=== PATIENT | female | born 1980 | race Two or more races ===

== ENCOUNTER 2024-06-07 01:25 | Emergency (ER) | payer OTHER ==
[~2024-06-07] VITALS: Ht 165.1 cm; Wt 86.0 kg
[2024-06-07] MEDS: IOHEXOL 300 MG/ML 100ML BOTTLE IJ ONE (02:03)
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
[2024-06-07] MEDS: ACETAMINOPHEN 325 MG TAB PO ONE (02:45)
[2024-06-07 02:47] LABS: Basophils # (auto) 0.1 10 ^3/uL (0-0.2); Basophils % (auto) 0.5 % (0.0-2.0); Eosinophils # (auto) 0.2 10 ^3/uL (0-0.8); Hemoglobin 13.3 g/dL (12.2-16.2); Lymphocytes % (auto) 18.7 % (10.0-50.0); Mean Corpuscular Hemoglobin 31.9 pg (28.0-32.0); Mean Corpuscular Hgb Conc. 33.2 g/dL (32.0-36.0); Mean Corpuscular Volume 95.9 fL (80.0-100.0); Monocytes # (auto) 0.9 10 ^3/uL (0-1.3); Monocytes % (auto) 5.7 % (0.0-12.0); Neutrophils % (auto) 74.1 % (37.0-80.0); Nucleated Red Blood Cells % 0.1 %; Platelet Count (auto) 356 10^3/uL (140-450); Red Blood Cells 4.17 10^6/uL (4.0-5.20); White Blood Cell 16.2 10^3/uL (4.4-10.8)
[2024-06-07 02:56] LABS: Chloride 104 mmol/L (98-107); Potassium 3.8 mmol/L (3.5-5.1); Sodium 138 mmol/L (136-145)
[2024-06-07 02:57] LABS: Anion Gap 10 (5-15); Carbon Dioxide 24 mmol/L (20-31)
[2024-06-07 02:58] LABS: Calcium 10.3 mg/dL (8.7-10.4)
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
[2024-06-07 03:02] LABS: Glucose 96 mg/dL (74-106)
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
[2024-06-07 03:21] LABS: BUN/Creatinine Ratio 10.5 (10.0-20.0); Blood Urea Nitrogen 11 mg/dL (9-23)
[2024-06-07] MEDS: HYDROcodone-ACET 5/325MG TAB PO ONE (03:55)
[2024-06-07 03:57] VITALS: BP 130/77; PULSE 94; RESP 20; TEMP 97.8; O2SAT 96
== END 2024-06-07 04:09 | disposition home or self-care (01) ==
LOC: ER 01:25 → EDBD 01:25 → ER 04:09
DX: R51.9 Headache, unspecified (principal); R10.2 Pelvic and perineal pain; Z88.5 Allergy status to narcotic agent; V89.2XXA Person injured in unspecified motor-vehicle accident, traffic, initial encounter; Y93.89 Activity, other specified; Y92.89 Other specified places as the place of occurrence of the external cause; Y99.8 Other external cause status
CPT/HCPCS: 36415; 70450; 71045; 74177; 80048; 84702; 85025; 99285; Q9967